=== PATIENT | female | born 2000 | race Caucasian/White ===

== ENCOUNTER 2024-04-27 00:31 | Outpatient (CLI) | payer BC, SELFPAY | END 2024-04-27 00:32 | disposition home or self-care (01) | LOC: AMB 05-01 06:56 | PROVIDERS: PCP Nurse Practitioner Family; Visit Provider Emergency Medicine | DX: R06.09 Other forms of dyspnea (principal); R13.10 Dysphagia, unspecified | CPT/HCPCS: A0425; A0429 ==

== ENCOUNTER 2024-04-27 00:59 | Emergency (ER) | payer BC, SELFPAY ==
[2024-04-27 01:05] VITALS: BP 135/107; PULSE 98; RESP 16; TEMP 36.3; O2SAT 98; BMI 42.1
--- NOTE | 2024-04-27 01:16 | ED_ITS ---
HPI - General Adult General Date Seen: 04/27/24 Chief complaint: Anxiety Stated complaint: Difficulty swallowing Time Seen by Provider: 04/27/24 01:02 Source: patient, EMS and RN notes reviewed Mode of arrival: EMS Limitations: no limitations History of Present Illness HPI narrative: Patient is a 24-year-old here by EMS with her fiance for evaluation of difficulty swallowing and anxiety. She says that she took her usual Seroquel at bedtime around 11. She woke up about an hour later feeling like her mouth was very dry and it was difficult to swallow. She says that she then started to panic about the difficulty swallowing, started to have trouble breathing. Waited about 15 minutes but symptoms were not relieving and so she called 911. She now feels much better, she feels the swallowing is almost back to normal but decreased enough that she is no longer worried about it. She does feel that this was similar to prior panic attacks but just does not seem to be going way. She notes that dry mouth is a common condition for her, likely related to the Seroquel. She denies prior history of gastroesophageal reflux or esophagitis. She has not had sore throat, cough, fevers. Related Data Home Medications ?Medication ?Instructions ?Recorded ?Confirmed quetiapine 200 mg tablet (Seroquel) 200 mg PO QHS 04/27/24 04/27/24 venlafaxine 50 mg tablet 50 mg PO DAILY 04/27/24 04/27/24 Allergies Allergy/AdvReac Type Severity Reaction Status Date / Time No Known Drug Allergies Allergy Verified 04/27/24 01:14 Review of Systems Status of ROS: Reports: 6 or more systems reviewed and unremarkable except as noted in History and below [facility] Social History Do you use any of these nicotine containing products: None Non-prescribed substance use: denies use Exam Narrative: Exam Narrative: Vital signs as noted above. In general, an alert, nontoxic young woman. Breathing easily. Voice is normal. Head: Normocephalic, atraumatic. Eyes: Pupils are equal reactive. Extraocular movements are full. Conjunctivae are normal. ENT: Mucous membranes are moist. Throat is normal. No edema, exudate, erythema. Neck: Supple without lymphadenopathy. No stridor. Heart: Regular rate and rhythm. No murmur or rub. Lungs: Clear bilaterally. No increased work of breathing, crackles or wheezes. Abdomen: Soft and nontender. No organomegaly. Extremities: Well perfused. No edema. No calf tenderness. Pulses intact. Neurologic: Patient is alert and oriented to person and place. Speech is fluent. Face is symmetric. Moves all extremities equally. Affect: Flat. Skin: Warm and dry. Well perfused. Const: Vital Signs, click to edit/add: Vital Signs - 24 hr 04/27/24 01:05 Temperature 97.4 F L Pulse Rate [Pulse Oximeter] 98 Respiratory Rate 16 Blood Pressure [Ri t Upper Arm] 135/107 H Pulse Oximetry 98 Oxygen Delivery Me thod Room Air Documenting provider has reviewed patient's vital signs: yes Course Course ED Course: Exam is reassuring. No evidence of airway compromise and symptoms that she felt previously seemed to resolve spontaneously. We talked about the possibility of gastroesophageal reflux, globus sensation. I do not see any evidence of peritonsillar or retropharyngeal abscess, epiglottitis, allergic reaction or ot her acute process requiring specific treatment. She acknowledges that there was a large component of anxiety to this, which fortunately has settled back down for her. Will observe for a bit and make sure she continues to feel well, no specific diagnostic testing or treatment needed at this time. She continues to feel well after 90 minutes of observation here. No further symptoms and would like to discharge. If she continues to have problems like this, consider trial of Prilosec. Primary care follow-up as needed. Return for worsening. Declines any it for any other management for anxiety. Vital Signs Vital signs: Initial Vital Signs Temperature 97.4 F L 04/27/24 01:05 Temperature Source Temporal Artery Scan 04/27/24 01:05 Pulse Rate 98 04/27/24 01:05 Respiratory Rate 16 04/27/24 01:05 Blood Pressure 135/107 H 04/27/24 01:05 Blood Pressure Mean 116 H 04/27/24 01:05 Blood Pressure Position Sitting 04/27/24 01:05 Pulse Oximetry 98 04/27/24 01:05 Oxygen Delivery Method Room Air 04/27/24 01:05 Vital Signs Temperature 97.4 F L 04/27/24 01:05 Pulse Rate 98 04/27/24 01:05 Respiratory Rate 16 04/27/24 01:05 Blood Pressure 135/107 H 04/27/24 01:05 Pulse Oximetry 98 04/27/24 01:05 Oxygen Delivery Method Room Air 04/27/24 01:05 Temperature 97.4 F L 04/27/24 01:05 Pulse Rate 98 04/27/24 01:05 Respiratory Rate 16 04/27/24 01:05 Blood Pressure 135/107 H 04/27/24 01:05 Pulse Oximetry 98 04/27/24 01:05 Oxygen Delivery Method Room Air 04/27/24 01:05 Discharge Plan Discharge Clinical Impression: Acute anxiety, Globus sensation Patient Disposition: Home, Self-Care Condition: Improved Additional Instructions: If you have recurrent symptoms of a sensation of difficulty swallowing, consider a trial of Prilosec, 40 mg daily for 2 weeks. Follow up with primary care as needed for persistent or new symptoms. Prescriptions: No Action quetiapine [Seroquel] 200 mg tablet 200 mg PO QHS venlafaxine 50 mg tablet 50 mg PO DAILY Follow Up/Referrals: Sammie Jang, [employer] [Primary Care Provider] - Stand Alone Forms: [facility] Info Instructions
== END 2024-04-27 02:31 | disposition home or self-care (01) ==
PROVIDERS: Emergency Provider Emergency Medicine; PCP Nurse Practitioner Family
DX: F41.9 Anxiety disorder, unspecified (principal); R09.89 Other specified symptoms and signs involving the circulatory and respiratory systems
CPT/HCPCS: 99283